=== PATIENT | female | born 1970 | race Caucasian/White ===

== ENCOUNTER 2017-10-24 21:06 | Inpatient (IN) | payer OTHER ==
[~2017-10-24] VITALS: Ht 157.5 cm; Wt 115.7 kg
[2017-10-25 01:24] LABS: HEMATOCRIT 32.7 % (36.0-46.0); HEMOGLOBIN 11.3 G/DL (11.9-15.5); MCH 28.2 PG (29.0-34.0); MCHC 34.6 G/DL (30.0-36.0); MCV 81.5 FL (83-99); PLATELET COUNT 156 K/uL (156-360); RBC DIS.WIDTH-CV 14.7 % (11.8-14.6); RBC DIS.WIDTH-SD 43.1 % (39-53); RED BLOOD COUNT 4.01 M/uL (3.80-5.20); WHITE BLOOD COUNT 7.3 K/uL (4.1-10.2)
[2017-10-25 01:41] LABS: APPEARANCE SL.HAZY ((CLEAR)); BILIRUBIN NEGATIVE; BLOOD NEGATIVE; COLOR YELLOW ((YELLOW)); GLUCOSE (STRIP) >=500; KETONES 5; LEUKOCYTES NEGATIVE; NITRITE NEGATIVE; PROTEIN (STRIP) 30; SPECIFIC GRAVITY 1.026 (1.000-1.030); UROBILINOGEN 0.2 MG/DL (0.2-1.0)
[2017-10-25 01:47] LABS: BACTERIA NONE SEEN /HPF; CALCIUM OXALATE CRYSTALS 4+ /HPF; EPITHELIAL CELLS 1+ /HPF; MUCUS TRACE /LPF; RED BLOOD CELLS 0-5 /HPF (0-5); UCUL ADDED? NO; WHITE BLOOD CELLS 0-5 /HPF (0-5)
[2017-10-25 01:49] LABS: AMPHETAMINE NEGATIVE (500 ng/mL); BARBITURATES NEGATIVE (200 ng/mL); BENZODIAZEPINES PRESUMPTIVE POSITIVE (150 ng/mL); BUPRENORPHINE NEGATIVE (10 ng/mL); COCAINE NEGATIVE (150 ng/mL); METHADONE NEGATIVE (200 ng/mL); METHAMPHETAMINE NEGATIVE (500 ng/mL); OPIATES (MORPHINE) NEGATIVE (100 ng/mL); OXYCODONE NEGATIVE (100 ng/mL); PHENCYCLIDINE NEGATIVE (25 ng/mL); PROPOXYPHENE NEGATIVE (300 ng/mL); THC CANNABINOIDS NEGATIVE (50 ng/mL); TRICYCLIC ANTIDEPRESSANTS NEGATIVE (300 ng/mL)
[2017-10-25 01:54] LABS: CHLORIDE 101 MEQ/L (99-109); CREATININE 0.6 MG/DL (0.6-1.3); GFR ESTIMATE (CALCULATED) > 59 mL/min/; GLUCOSE 350 mg/dL (70-99); POTASSIUM 3.9 MEQ/L (3.7-5.4); SODIUM 136 MEQ/L (136-147); UREA NITROGEN (BUN) 9 mg/dL (9-23)
[2017-10-25 02:18] LABS: SERUM ETHYL ALCOHOL < 10 mg/dL
[2017-10-25 02:50] LABS: CARBON DIOXIDE (BICARBONATE) 29.3 MEQ/L (20-31)
[2017-10-25 03:10] LABS: BENZODIAZEPINES, URINE SCREEN Negative (200 ng/mL)
[2017-10-25] MEDS ORDERED: GABAPENTIN100 MG PO (06:03)
[2017-10-25] MEDS ORDERED: TRAZODONE HCL50 MG PO (06:08)
[2017-10-25] MEDS ORDERED: ATIVAN1 MG PO (06:09)
[2017-10-25] MEDS ORDERED: ATORVASTATIN CA20 MG PO (06:09)
[2017-10-25] MEDS ORDERED: COLACE100 MG PO (06:10)
[2017-10-25] MEDS ORDERED: DICLOFENAC SODI75 MG PO (06:11)
[2017-10-25] MEDS ORDERED: CARBINOXAMINE MA4 MG PO (06:12)
[2017-10-25] MEDS ORDERED: AMLODIPINE BESY10 MG PO (06:13)
[2017-10-25] MEDS ORDERED: CYMBALTA60 MG PO (06:13)
[2017-10-25] MEDS ORDERED: PREPLUS CA-FE1 EACH PO (06:14)
[2017-10-25] MEDS ORDERED: GLUCOPHAGE1000 MG PO (06:15)
[2017-10-25] MEDS ORDERED: AMARYL1 MG PO (06:16)
[2017-10-25] MEDS ORDERED: LISINOPRIL20 MG PO (06:16)
[2017-10-25] MEDS ORDERED: ESOMEPRAZOLE MA40 MG PO (06:17)
[2017-10-25] MEDS ORDERED: HUMULIN 70100 UNIT/2 SC (06:20)
[2017-10-25] MEDS ORDERED: TIMOLOL MALEATE5 M2 BOTH EYES (06:21)
[2017-10-25] MEDS ORDERED: XALATAN2.5 ML BOTH EYES (06:23)
[2017-10-25 08:01] VITALS: BP 104/49
[2017-10-25 16:34] VITALS: BP 139/70
[2017-10-26 08:01] VITALS: BP 142/84
[2017-10-26 16:05] VITALS: BP 134/67
[2017-10-27 09:44] VITALS: BP 103/56
[2017-10-27 15:37] VITALS: BP 111/58
[2017-10-28 08:23] VITALS: BP 125/71
[2017-10-28 15:31] VITALS: BP 119/55
[2017-10-29 08:20] VITALS: BP 127/58; BP 27/58
[2017-10-29 15:42] VITALS: BP 109/55
[2017-10-30 08:00] VITALS: BP 134/64
== END 2017-10-30 12:41 | disposition home or self-care (01) | DRG 881 ==
LOC: EME 21:06 → 1WEST 10-25 03:42 → EDOF 10-25 03:42 → ENRESERV 10-25 04:17 → 1WEST 10-25 04:41
PROVIDERS: Emergency Medicine; Psychiatry & Neurology Psychiatry
DX: F32.9 Major depressive disorder, single episode, unspecified (principal); R45.851 Suicidal ideations; I10 Essential (primary) hypertension; E66.3 Overweight; F43.10 Post-traumatic stress disorder, unspecified; F60.3 Borderline personality disorder; H40.9 Unspecified glaucoma
CPT/HCPCS: 80048; 81003; 81025; 82010; 82803; 82948; 84999; 85027; 90839; 97150 GO; 97166 GO; 97530 GO; 99202; 99281; 99285; G0480; J1815; J7030